=== PATIENT | male | born 1995 | race American Indian/Alaskan Native ===

== ENCOUNTER 2018-10-13 15:03 | Emergency (ER) | payer SELFPAY ==
[2018-10-13 15:10] VITALS: BP 138/69
--- NOTE | 2018-10-13 15:32 | Emergency Department Report ---
Chief Complaint: Skin/Abscess/Foreign Body Stated Complaint: LFT HAND CUT/PAIN Time Seen by Provider: 10/13/18 15:09 - HPI History of Present Illness: 23 y old male presents to ED cc of spider bite to left hand that occured yesterday while he was outside. pt debniws any bleeding to the site, He denies f/c/n/v/abd pain/ - ROS Review of Systems: As noted in HPI - Exam Vital Signs: Vital Signs 10/13/18 15:09 Temperature 98.3 F Pulse Rate 58 L Respiratory 18 Rate Blood Pressure 138/69 O2 Sat by Pulse 99 Oximetry Physical Exam: GEN: AAO x 3 , no acute distress SKIN: single bite lesion noticed on left index finger between the thumb non erythematous, non swelling MSE screening note: Focused history and physical exam performed. Due to findings the following was ordered: ED Medical Decision Making - Medical Decision Making 23 y o male presents with insect bite there is no swelling, erythema to area. Discussed f/u with pcp VSS, pt is in no acute distress ED Disposition for MSE Clinical Impression: Insect bite Disposition: DC-01 TO HOME OR SELFCARE Is pt being admited?: No Does the pt Need Aspirin: No Condition: Stable Instructions: Insect Bite or Sting (ED) Additional Instructions: f/u with PCP. take meds as prescribed return to ED imediately if you have any worsening symptoms Prescriptions: cephALEXin [Keflex] 500 mg PO Q12HR #10 cap Ibuprofen [Motrin] 600 mg PO Q8H PRN #30 tablet PRN Reason: Pain Referrals: ANALISA FRYE MD [Primary Care Provider] - 3-5 Days Forms: Accompanied Note, Work/School Release Form(ED) Time of Disposition: 16:11
== END 2018-10-13 18:31 | disposition home or self-care (01) ==
LOC: ED 15:03
DX: S60.461A Insect bite (nonvenomous) of left index finger, initial encounter (principal); W57.XXXA Bitten or stung by nonvenomous insect and other nonvenomous arthropods, initial encounter; Y93.89 Activity, other specified; Y92.89 Other specified places as the place of occurrence of the external cause; Y99.8 Other external cause status
CPT/HCPCS: 99282

== ENCOUNTER 2018-10-17 19:02 | Emergency (ER) | payer SELFPAY ==
--- NOTE | 2018-10-17 19:40 | Emergency Department Report ---
Blank Doc - Documentation Documentation: 23 year old male was here 3 days ago and reportly dx with spider bite. Returns for worsen symptoms and swelling Plan. Needs I&D. Abx adjustments
--- NOTE | 2018-10-17 21:48 | Emergency Department Report ---
- General Chief complaint: Skin/Abscess/Foreign Body Stated complaint: SPIDER BITE Time Seen by Provider: 10/17/18 19:39 Source: patient Mode of arrival: Ambulatory Limitations: No Limitations - History of Present Illness Initial comments: Pt presents to the ED with c/o a possible insect bite on the left hand that occurred 4 days ago. He did not see or feel anything bite him. He was evaluated in the ED on 10/13 and was given keflex. He states he has worsening edema to the left hand. He denies any fever or drainage. He denies any PMHx. no allergies to meds. - Related Data Previous Rx's Medication Instructions Recorded Last Taken Type Ibuprofen [Motrin] 600 mg PO Q8H PRN #30 tablet 10/13/18 Unknown Rx cephALEXin [Keflex] 500 mg PO Q12HR #10 cap 10/13/18 Unknown Rx Sulfamethoxazole/Trimethoprim 1 each PO BID 7 Days #14 tablet 10/17/18 Unknown Rx [Bactrim DS TAB] Allergies Allergy/AdvReac Type Severity Reaction Status Date / Time No Known Allergies Allergy Verified 10/13/18 15:05 Abscess Boil HPI - HPI Chief Complaint: Skin/Abscess/Foreign Body Stated Complaint: SPIDER BITE Time Seen by Provider: 10/17/18 19:39 Home Medications: Previous Rx's Medication Instructions Recorded Last Taken Type Ibuprofen [Motrin] 600 mg PO Q8H PRN #30 tablet 10/13/18 Unknown Rx cephALEXin [Keflex] 500 mg PO Q12HR #10 cap 10/13/18 Unknown Rx Sulfamethoxazole/Trimethoprim 1 each PO BID 7 Days #14 tablet 10/17/18 Unknown Rx [Bactrim DS TAB] Allergies/Adverse Reactions: Allergies Allergy/AdvReac Type Severity Reaction Status Date / Time No Known Allergies Allergy Verified 10/13/18 15:05 ED Review of Systems ROS: Stated complaint: SPIDER BITE Other details as noted in HPI Comment: All other systems reviewed and negative ED Past Medical Hx - Past Medical History Previous Medical History?: No - Surgical History Past Surgical History?: No - Social History Smoking Status: Never Smoker Substance Use Type: None - Medications Home Medications: Home Medications Medication Instructions Recorded Confirmed Last Taken Type Ibuprofen [Motrin] 600 mg PO Q8H PRN #30 tablet 10/13/18 Unknown Rx cephALEXin [Keflex] 500 mg PO Q12HR #10 cap 10/13/18 Unknown Rx Sulfamethoxazole/Trimethoprim 1 each PO BID 7 Days #14 tablet 10/17/18 Unknown Rx [Bactrim DS TAB] ED Physical Exam - General Limitations: No Limitations General appearance: alert, in no apparent distress - Head Head exam: Present: atraumatic, normocephalic - Eye Eye exam: Present: normal appearance - ENT ENT exam: Present: mucous membranes moist - Respiratory Respiratory exam: Absent: respiratory distress - Neurological Exam Neurological exam: Present: alert, oriented X3 - Psychiatric Psychiatric exam: Present: normal affect, normal mood - Skin Skin exam: Present: warm, dry, other (2 cm area of induration and flucutance to the dorsal surface of the left hand between the thumb and index finger, FROM of all digitis with no discomfort, no surrounding cellulitis, neurovascularly intact) ED Course Vital Signs 10/17/18 10/17/18 10/17/18 19:14 19:38 23:28 Temperature 97.9 F 97.9 F 98.0 F Pulse Rate 57 L 56 L 60 Respiratory 18 18 20 Rate Blood Pressure 125/67 125/67 Blood Pressure 122/77 [Right] O2 Sat by Pulse 99 99 99 Oximetry - I & D Left Dorsal Hand Type of Procedure: Simple Site: dorsal surface of the left hand between the thumb and index finger Blade Size: 11 I & D Procedure: betadine prep, sterile drapes applied, sterile dressing applied Progress: area prepped with betadine and sterile drapes applied, 1 cc of 2% lidocaine used, 0.5 cm incision made, serous and purulent drainage expressed, irrigated with 20 cc of saline, pt tolerated well, bleeding controlled, no complications, sterile dressing applied ED Medical Decision Making - Medical Decision Making Pt presents to the ED with c/o a possible insect bite on the left hand that occurred 4 days ago. He did not see or feel anything bite him. He was evaluated in the ED on 10/13 and was given keflex. He states he has worsening edema to the left hand. He denies any fever or drainage. He denies any PMHx. no allergies to meds. 2 cm abscess present to the left hand, I&D performed per procedure note, serous and purulent discharge expressed. pt placed on bactrim. discussed to please take all medication as prescribed. keep area clean and dry. do not get in pool or hot tub. follow up with a primary care doctor in the next 2-3 days for reevaluation. return to the emergency room for any new or worsening symptoms as discussed. Critical care attestation.: If time is entered above; I have spent that time in minutes in the direct care of this critically ill patient, excluding procedure time. ED Disposition Clinical Impression: Abscess, Encounter for incision and drainage procedure Disposition: TO HOME OR SELFCARE Is pt being admited?: No Does the pt Need Aspirin: No Condition: Stable Instructions: Abscess Incision and Drainage (ED), Abscess (ED) Additional Instructions: Please take all medication as prescribed. keep area clean and dry. do not get in pool or hot tub. follow up with a primary care doctor in the next 2-3 days for reevaluation. return to the emergency room for any new or worsening symptoms as discussed. Prescriptions: Sulfamethoxazole/Trimethoprim [Bactrim DS TAB] 1 each PO BID 7 Days #14 tablet Referrals: ANALISA FRYE MD [Primary Care Provider] - 2-3 Days [facility] [Outside] - 2-3 Days Forms: Work/School Release Form(ED) Time of Disposition: 22:42 Print Language: WOLOF
[2018-10-17 23:29] VITALS: BP 122/77
[2018-10-18] MEDS ORDERED: XYLOCAINE 2% INFILTRATI ONE (04:33)
== END 2018-10-17 23:40 | disposition home or self-care (01) ==
LOC: ED 19:02
DX: L02.512 Cutaneous abscess of left hand (principal); Z79.899 Other long term (current) drug therapy

== ENCOUNTER 2018-10-24 12:02 | Emergency (ER) | payer OTHER ==
--- NOTE | 2018-10-24 12:19 | Emergency Department Report ---
Blank Doc - Documentation Documentation: 23 y/o male near 2 weeks s/p spider bite on bactrim and thinks he is having a reaction to medication. also has feverish with chest pain and myalgia. Plan: Labs and xray.
[2018-10-24] MEDS ORDERED: TYLENOL PO ONE (12:23)
[2018-10-24] MEDS ORDERED: IBUPROFEN PO ONE (12:53)
[2018-10-24] MEDS ORDERED: FIORICET PO ONE (12:53)
[2018-10-24] MEDS ORDERED: ZOFRAN ODT PO ONE (12:54)
--- NOTE | 2018-10-24 13:47 | Emergency Department Report ---
ED General Adult HPI - General Chief complaint: Nausea/Vomiting/Diarrhea Stated complaint: SIDE AFFECTS FROM MEDICATION Time Seen by Provider: 10/24/18 12:11 Source: patient Mode of arrival: Ambulatory Limitations: No Limitations - History of Present Illness Initial comments: Gely is a 23-year-old male who presents with nausea and headache for the last 2 days. Says the headaches on his right side of his head. He states that moving around makes it worse nothing makes it better. He states that it's a 3 out of 10. He also states that he feels like he is having a side effect to the Bactrim that he got for his spider bite. Patient states that he's been having some mild fever. Severity scale (0 -10): 8 - Related Data Previous Rx's Medication Instructions Recorded Last Taken Type Ibuprofen [Motrin] 600 mg PO Q8H PRN #30 tablet 10/13/18 Unknown Rx cephALEXin [Keflex] 500 mg PO Q12HR #10 cap 10/13/18 Unknown Rx Sulfamethoxazole/Trimethoprim 1 each PO BID 7 Days #14 tablet 10/17/18 Unknown Rx [Bactrim DS TAB] Butalb/Acetaminophen/Caffeine 1 cap PO Q6HR PRN #15 cap 10/24/18 Unknown Rx [Fioricet 50-300-40 mg CAP] Phenylephrine/Dm/Acetaminop/GG 1 each PO Q6H #30 tablet 10/24/18 Unknown Rx [Tylenol Cold & Flu Severe Cplt] Allergies Allergy/AdvReac Type Severity Reaction Status Date / Time No Known Allergies Allergy Verified 10/24/18 12:32 ED Review of Systems ROS: Stated complaint: SIDE AFFECTS FROM MEDICATION Other details as noted in HPI Constitutional: denies: chills, fever Eyes: denies: eye pain, eye discharge, vision change ENT: denies: ear pain, throat pain Respiratory: denies: cough, shortness of breath, wheezing Cardiovascular: denies: chest pain, palpitations Endocrine: no symptoms reported Gastrointestinal: denies: abdominal pain, nausea, diarrhea Genitourinary: denies: urgency, dysuria Musculoskeletal: denies: back pain, joint swelling, arthralgia Skin: denies: rash, lesions Neurological: denies: headache, weakness, paresthesias Psychiatric: denies: anxiety, depression Hematological/Lymphatic: denies: easy bleeding, easy bruising ED Past Medical Hx - Past Medical History Previous Medical History?: No - Surgical History Past Surgical History?: No - Social History Smoking Status: Never Smoker Substance Use Type: Prescribed - Medications Home Medications: Home Medications Medication Instructions Recorded Confirmed Last Taken Type Ibuprofen [Motrin] 600 mg PO Q8H PRN #30 tablet 10/13/18 Unknown Rx cephALEXin [Keflex] 500 mg PO Q12HR #10 cap 10/13/18 Unknown Rx Sulfamethoxazole/Trimethoprim 1 each PO BID 7 Days #14 tablet 10/17/18 Unknown Rx [Bactrim DS TAB] Butalb/Acetaminophen/Caffeine 1 cap PO Q6HR PRN #15 cap 10/24/18 Unknown Rx [Fioricet 50-300-40 mg CAP] Phenylephrine/Dm/Acetaminop/GG 1 each PO Q6H #30 tablet 10/24/18 Unknown Rx [Tylenol Cold & Flu Severe Cplt] ED Physical Exam - General Limitations: No Limitations General appearance: alert, in no apparent distress - Head Head exam: Present: atraumatic, normocephalic - Eye Eye exam: Present: normal appearance - ENT ENT exam: Present: mucous membranes moist - Neck Neck exam: Present: normal inspection - Respiratory Respiratory exam: Present: normal lung sounds bilaterally. Absent: respiratory distress - Cardiovascular Cardiovascular Exam: Present: regular rate, normal rhythm. Absent: systolic murmur, diastolic murmur, rubs, gallop - GI/Abdominal GI/Abdominal exam: Present: soft, normal bowel sounds - Rectal Rectal exam: Present: deferred - Extremities Exam Extremities exam: Present: normal inspection - Back Exam Back exam: Present: normal inspection - Neurological Exam Neurological exam: Present: alert, oriented X3 - Psychiatric Psychiatric exam: Present: normal affect, normal mood - Skin Skin exam: Present: warm, dry, intact, normal color. Absent: rash ED Course Vital Signs 10/24/18 10/24/18 10/24/18 12:12 13:03 13:09 Temperature 102.2 F H 101.4 F H Pulse Rate 93 H Respiratory 16 18 Rate Blood Pressure 131/49 O2 Sat by Pulse 96 Oximetry ED Medical Decision Making - Radiology Data Radiology results: report reviewed, image reviewed Chest x-ray: Shows no acute cardiopulmonary disease Critical care attestation.: If time is entered above; I have spent that time in minutes in the direct care of this critically ill patient, excluding procedure time. ED Disposition Clinical Impression: Tension headache Fever Qualifiers: Fever type: unspecified Qualified Code(s): R50.9 - Fever, unspecified Disposition: - TO HOME OR SELFCARE Is pt being admited?: No Does the pt Need Aspirin: No Condition: Stable Instructions: Fever in Adults (ED) Prescriptions: Butalb/Acetaminophen/Caffeine [Fioricet 50-300-40 mg CAP] 1 cap PO Q6HR PRN #15 cap PRN Reason: Headache Phenylephrine/Dm/Acetaminop/GG [Tylenol Cold & Flu Severe Cplt] 1 each PO Q6H #30 tablet Referrals: ANALISA FRYE MD [Primary Care Provider] - 3-5 Days Forms: Work/School Release Form(ED)
--- NOTE | 2018-10-24 14:06 | XRay Report ---
PROCEDURE: XR CHEST ROUTINE 2V TECHNIQUE: PA and lateral chest radiographs were obtained. HISTORY: chest pain COMPARISONS: None. FINDINGS: Frontal and lateral views of the chest were acquired. The heart is normal in size. The lung s appear clear. The pleura and mediastinum are within normal limits. IMPRESSION: No active disease in the chest This document is electronically signed by Edwin Stafford MD., October 24 2018 02:04:23 PM ET
[2018-10-24 14:11] VITALS: BP 123/55
== END 2018-10-24 13:53 | disposition home or self-care (01) ==
LOC: ED 12:02
DX: G44.209 Tension-type headache, unspecified, not intractable (principal); R50.9 Fever, unspecified; Z79.899 Other long term (current) drug therapy
CPT/HCPCS: 71046; 99283; Q0162